=== PATIENT | male | born 1960 | race Caucasian/White ===

== ENCOUNTER 2019-12-21 15:34 | Outpatient (REF) | payer BC, SELFPAY ==
[2019-12-21 17:32] LABS: MANUAL DIFF FLAG NO
[2019-12-21 17:47] LABS: Basophils Percent Auto 0.5 % (0-2); Eosinophils Absolute Auto 0.2 X10*3/uL (0.0-0.4); Eosinophils Percent Auto 1.8 % (0-4); Hemoglobin 13.6 g/dl (14.0-18.0); Imm Gran Abs Auto 0.03 X10*3/uL (0.00-0.03); Imm Gran Pct Auto 0.4 % (0.0-0.4); Lymphocytes Absolute Auto 1.8 X10*3/uL (1.2-4.9); Lymphocytes Percent Auto 22.4 % (20-40); Mean Corpuscular HGB Conc 34.9 g/dl (31.0-36.0); Mean Corpuscular Hemoglobin 30.9 pg (27.0-33.0); Mean Corpuscular Volume 88.6 fL (80-98); Monocytes Absolute Auto 0.6 X10*3/uL (0.1-1.2); Monocytes Percent Auto 7.8 % (2-11); Neutrophils Absolute Auto 5.5 X10*3/uL (2.0-8.3); Neutrophils Percent Auto 67.1 % (45-73); Platelet Count 198 X10*3/uL (160-400); Red Cell Distribution Width 14.3 % (11.0-16.0); White Blood Count 8.2 X10*3/uL (4.8-10.8)
[2019-12-21 18:06] LABS: Alanine Aminotransferase 19 U/L (0-40); Albumin Level 4.6 g/dL (3.5-5.0); Alkaline Phosphatase 74 U/L (39-117); Aspartate Amino Transferase 29 U/L (5-37); Bilirubin Direct 0.2 mg/dL (0.0-0.5); Bilirubin Total 0.5 mg/dL (0.0-1.0); Total Protein 7.2 g/dL (6.5-8.0)
== END 2019-12-21 15:35 | disposition home or self-care (01) ==
LOC: HO.LAB 15:34
PROVIDERS: Visit Provider Psychiatry & Neurology Neurology
DX: G40.802 Other epilepsy, not intractable, without status epilepticus (principal)
CPT/HCPCS: 36415; 80076; 85025

== ENCOUNTER 2020-08-25 14:11 | Outpatient (REF) | payer BC, SELFPAY ==
[2020-08-25 14:47] LABS: Hematocrit 40.2 % (42-52); Hemoglobin 13.8 g/dl (14.0-18.0); Mean Corpuscular HGB Conc 34.3 g/dl (31.0-36.0); Mean Corpuscular Hemoglobin 30.5 pg (27.0-33.0); Mean Corpuscular Volume 88.9 fL (80-98); Mean Platelet Volume 9.1 fL (9.4-12.4); Platelet Count 201 X10*3/uL (160-400); Red Blood Count 4.52 X10*6/uL (4.60-5.80); Red Cell Distribution Width 14.2 % (11.0-16.0); White Blood Count 8.2 X10*3/uL (4.8-10.8)
[2020-08-25 14:51] LABS: Estimated Average Glucose 103 mg/dL; Hemoglobin A1c % 5.2 %
[2020-08-25 15:08] LABS: Alanine Aminotransferase 22 U/L (0-40); Albumin Level 4.5 g/dL (3.5-5.0); Alkaline Phosphatase 69 U/L (39-117); Anion Gap 13 (12-20); Aspartate Amino Transferase 28 U/L (5-37); Bilirubin Total 0.7 mg/dL (0.0-1.0); Blood Urea Nitrogen 10 mg/dL (9-16); Calcium 9.4 mg/dL (8.4-10.2); Carbon Dioxide 26 mmol/L (22-29); Chloride 95 mmol/L (96-108); Cholesterol 214 mg/dL; Estimated Glomerular Filt Rate > 60; Glucose Fasting 101 mg/dL (60-99); HDL Cholesterol 66 mg/dL; LDL Cholesterol Calculated 139 mg/dl; Potassium 4.2 mmol/L (3.3-5.1); Sodium 130 mmol/L (135-145); Total Protein 7.3 g/dL (6.5-8.0); Triglycerides 45 mg/dL
[2020-08-25 15:31] LABS: TSH reflex Free T4 0.43 uIU/mL (0.32-4.0)
== END 2020-08-25 14:12 | disposition home or self-care (01) ==
LOC: HO.LAB 14:11
PROVIDERS: PCP Physician Assistant; Visit Provider Physician Assistant
DX: I10 Essential (primary) hypertension (principal); R19.7 Diarrhea, unspecified; F17.210 Nicotine dependence, cigarettes, uncomplicated; Z12.11 Encounter for screening for malignant neoplasm of colon; Z12.5 Encounter for screening for malignant neoplasm of prostate; Z13.29 Encounter for screening for other suspected endocrine disorder; Z13.1 Encounter for screening for diabetes mellitus; Z13.220 Encounter for screening for lipoid disorders
CPT/HCPCS: 36415; 80053; 80061; 81382; 83036; 84153; 84443; 85027

== ENCOUNTER → 2020-10-18 15:46 | Outpatient (BNVA) | payer BC, SELFPAY | PROVIDERS: Referring Provider Physician Assistant; Visit Provider Nurse Practitioner Family ==

== ENCOUNTER 2021-08-08 08:30 | Outpatient (REF) | payer OTHER, SELFPAY ==
--- NOTE | ~2021-08-08 | CT_ITS ---
EXAMINATION: CT ABDOMEN AND PELVIS WITHOUT CONTRAST CLINICAL INFORMATION: Unilateral inguinal hernia. COMPARISON: None TECHNIQUE: Multidetector volumetric imaging was performed from the superior aspect of the liver through the pubic symphysis. Sagittal and coronal reformatted images were obtained on the technologist's workstation. This CT examination was performed using dose optimization techniques as appropriate, variously including the following: *Automated exposure control *Adjustment of mA and/or kV according to patient size (this includes techniques or standardized protocols for targeted exams where dose is matched to indication/reason for exam; i.e. extremities or head) *Use of iterative reconstruction technique DLP: 315 mGy-cm FINDINGS: LUNG BASES: There is some bibasilar atelectasis or scarring present. No significant acute parenchymal disease is noted. No suspicious lung nodules seen. No pleural or pericardial effusion. LIVER, GALLBLADDER, AND BILIARY TREE: There are a few scattered subcentimeter low-density regions seen within the liver. Within segment 7 of the liver, there is a 1.5 cm cyst present. No definite suspicious solid masses are identified. No intrahepatic bile duct dilatation is seen. The gallbladder is unremarkable with no evidence of radiopaque gallstones, gallbladder wall thickening, or obvious pericholecystic inflammatory changes. PANCREAS: Unremarkable. SPLEEN: Unremarkable. ADRENAL GLANDS: Unremarkable. KIDNEYS AND URETERS: There is a 6 mm nonobstructing calculus seen within the upper pole of the right kidney. Neither kidney demonstrates hydronephrosis. No suspicious solid mass is identified. There is lack of intra-abdominal fat present. No ureteral abnormality is appreciated. BLADDER: Unremarkable. GASTROINTESTINAL TRACT: No dilated loops of large or small bowel are evident. No free air or free fluid is seen. No evidence to suggest colitis. No evidence of acute appendicitis. ABDOMINAL WALL: There is a fat-containing left direct inguinal hernia present with some stranding within the fat consistent with edema. No definite fluid within the sac is identified. LYMPH NODES: No lymphadenopathy is appreciated; however, evaluation is limited due to lack of intra-abdominal fat. VASCULAR: There is mild aortoiliac calcified plaque. No abdominal aortic aneurysm. PELVIC VISCERA: Unremarkable. OSSEOUS STRUCTURES: No suspicious destructive bony lesion is identified. There is degenerative disc disease seen at the L5-S1 level. There is mild scoliosis of the lumbar spine convex right. There is degenerative joint disease seen involving both hips with subchondral cyst formation. There is a nondestructive sclerotic lesion seen about the right iliac bone. CT/CT abdomen pelvis wo con IMPRESSION: Fat-containing left direct inguinal hernia with some edema within the fat. Hepatic cyst. 6 mm nonobstructing right renal calculus. Fleischner guidelines were followed.
[2021-08-08] MEDS: Barium Sulfate Oral (Mocha) 450 ML ORAL.SUSP 900 ML PO (11:28)
== END 2021-08-08 08:31 | disposition home or self-care (01) ==
LOC: HO.CT 08:30
PROVIDERS: PCP Physician Assistant; Visit Provider Physician Assistant
DX: K40.90 Unilateral inguinal hernia, without obstruction or gangrene, not specified as recurrent (principal)
CPT/HCPCS: 74176

== ENCOUNTER → 2022-03-16 14:35 | Outpatient (BNVA) | payer OTHER, SELFPAY | PROVIDERS: PCP Physician Assistant; Visit Provider Nurse Practitioner Family | DX: Z13.89 Encounter for screening for other disorder (principal) ==

== ENCOUNTER 2022-05-15 15:41 | Outpatient (REF) | payer OTHER, SELFPAY ==
[2022-05-15 17:18] LABS: Hematocrit 38.4 % (42.0-52.0); Hemoglobin 13.3 g/dl (14.0-18.0); Mean Corpuscular HGB Conc 34.6 g/dl (31.0-36.0); Mean Corpuscular Hemoglobin 30.6 pg (27.0-33.0); Mean Corpuscular Volume 88.3 fL (80.0-98.0); Mean Platelet Volume 9.4 fL (9.4-12.4); Platelet Count 192 X10*3/uL (160-400); Red Blood Count 4.35 X10*6/uL (4.60-5.80); Red Cell Distribution Width 14.6 % (11.0-16.0); White Blood Count 8.4 X10*3/uL (4.8-10.8)
[2022-05-15 17:52] LABS: Alanine Aminotransferase 15 U/L (0-40); Albumin Level 4.2 g/dL (3.5-5.0); Alkaline Phosphatase 129 U/L (39-117); Anion Gap 15 (12-20); Aspartate Amino Transferase 21 U/L (5-37); Bilirubin Total 0.5 mg/dL (0.0-1.0); Blood Urea Nitrogen 13 mg/dL (9-16); C Reactive Protein 0.19 mg/dL (< or = 0.50); Carbon Dioxide 23 mmol/L (22-29); Chloride 98 mmol/L (96-108); Estimated Glomerular Filt Rate > 60; Glucose Random 84 mg/dL (60-115); Lipase 28 U/L (8-78); Potassium 4.6 mmol/L (3.3-5.1); Sodium 131 mmol/L (135-145); Total Protein 6.7 g/dL (6.5-8.0)
[2022-05-15 18:24] LABS: Vitamin B12 952 pg/mL (200-900)
[2022-05-16 19:29] LABS: Transglutaminase Ab IgG <1.0 U/mL; Transglutaminase IgA <1.0 U/mL
[2022-05-18 19:24] LABS: Vitamin D 25-OH, D2 <4 ng/mL; Vitamin D 25-OH, D3 10 ng/mL; Vitamin D 25-OH, Total 10 ng/mL (30-100)
== END 2022-05-15 15:42 | disposition home or self-care (01) ==
LOC: HO.LAB 15:41
PROVIDERS: PCP Physician Assistant; Visit Provider Nurse Practitioner Family
DX: E55.9 Vitamin D deficiency, unspecified (principal); K21.9 Gastro-esophageal reflux disease without esophagitis; K58.9 Irritable bowel syndrome, unspecified; R19.7 Diarrhea, unspecified; R10.9 Unspecified abdominal pain
CPT/HCPCS: 36415; 80053; 82306; 82607; 82746; 83690; 85027; 86140; 86364

== ENCOUNTER 2023-04-12 15:03 | Outpatient (REF) | payer OTHER, SELFPAY ==
--- NOTE | ~2023-04-12 | XR_ITS ---
EXAMINATION: XR ABDOMEN KUB CLINICAL INDICATION: Abdominal pain COMPARISON: CT of abdomen from July 2021 TECHNIQUE: AP view of the abdomen. FINDINGS: There is nonobstructive bowel gas pattern with 0.6 cm calcification projecting over the expected position of right kidney. There is dextroscoliosis of lumbar spine and mild degenerative changes. XR/XR KUB IMPRESSION: Most likely nephrolithiasis on the right
[2023-04-12 15:43] LABS: Appearance Urine Cloudy; Color Urine Yellow; Glucose Urine UA Negative (Negative); Leukocyte Esterase Urine Trace (Negative); Nitrite Urine Negative (Negative); PH 6.5 (5.0-9.0); UMIC TRIGGER UACC YES; Urine Blood Negative (Negative); Urine Ketones Negative (Negative); Urine Protein Negative (Neg-Trace)
[2023-04-12 15:48] LABS: Bacteria Urine None Seen (None Seen); Hyaline Casts Urine 0-2 /LPF (0-2); RBC Urine 0-2 /HPF (0-2); Squamous Epithelial Cell Urine 0-2 /HPF (0-2); UACC Culture Trigger YES
[2023-04-12 15:51] LABS: Hemoglobin 13.9 g/dl (14.0-18.0); Mean Corpuscular HGB Conc 34.8 g/dl (31.0-36.0); Mean Corpuscular Hemoglobin 31.6 pg (27.0-33.0); Mean Corpuscular Volume 90.9 fL (80.0-98.0); Mean Platelet Volume 8.9 fL (9.4-12.4); Platelet Count 193 X10*3/uL (160-400); Red Cell Distribution Width 14.6 % (11.0-16.0); White Blood Count 7.2 X10*3/uL (4.8-10.8)
[2023-04-12 16:05] LABS: Anion Gap 13 (12-20); Blood Urea Nitrogen 17 mg/dL (9-16); Calcium 9.6 mg/dL (8.4-10.2); Carbon Dioxide 28 mmol/L (22-29); Chloride 100 mmol/L (96-108); Estimated Glomerular Filt Rate > 60; Glucose Random 101 mg/dL (60-115); Potassium 4.4 mmol/L (3.3-5.1); Sodium 137 mmol/L (135-145)
[2023-04-16 18:23] LABS: Levetiracetam Keppra 5.5 mcg/mL (6.0-46.0)
== END 2023-04-12 15:04 | disposition home or self-care (01) ==
LOC: HO.LAB 15:03
PROVIDERS: PCP Physician Assistant; Visit Provider Physician Assistant
DX: R10.9 Unspecified abdominal pain (principal); G40.909 Epilepsy, unspecified, not intractable, without status epilepticus
CPT/HCPCS: 36415; 74018; 80048; 80177; 81001; 85027; 87086

== ENCOUNTER 2023-05-02 15:21 | Outpatient (REF) | payer OTHER, SELFPAY ==
--- NOTE | ~2023-05-02 | US_ITS ---
Examination: Renal ultrasound. Clinical indications: Calculus of kidney. COMPARISON: CT abdomen and pelvis 08/08/2021 and x-ray abdomen 04/12/2023. TECHNIQUE: Routine grayscale imaging of kidneys was performed. FINDINGS: Right kidney: There is normal cortical thickness with mild malrotation right kidney. Right kidney measuring 10.5 x 4.1 x 4.8 cm. There is echogenic stone upper pole measuring 1.0 x 0.6 x 0.7 cm with mild caliectasis. No additional echogenic stones seen. There is mild pelvic fullness. Left kidney was not imaged. Incidental finding of the right hepatic lobe cyst measures 1.7 x 1.2 x [address] it measured 1.5 cm. Echogenic stone upper pole right kidney with mild caliectasis and mild pelvic fullness. The left kidney was not imaged
== END 2023-05-02 15:22 | disposition home or self-care (01) ==
LOC: HO.US 15:21
PROVIDERS: PCP Physician Assistant; Visit Provider Physician Assistant
DX: N20.0 Calculus of kidney (principal)
CPT/HCPCS: 76775

== ENCOUNTER 2023-05-03 10:31 | Outpatient (AMB) | payer OTHER, SELFPAY ==
--- NOTE | 2023-05-03 10:51 | A.OFFVIS_ITS ---
Intake Visit Reasons: kidney stones Intake Note: NEW Patient presents today to established treatment for Kidney Stones: Meds- Tamsulosin (not taking) Allergies to Antibiotic- No Known Allergies Blood Thinner- None Explosive Operator Grenade Required: No Accompanied by: Self / Same As Patient Allergies No Known Allergies Allergy (Verified 05/03/23 10:52) HPI Comments Details: Jose is here for new patient evaluation for right kidney stone. He had imaging KUB and renal US significant for right nephrolithiasis. KUB results 6 mm calcification, renal US measures stone to be approximately 10 mm. Discussed risks to include but not limited to, blood in the urine, bruising to the skin, kidney hematoma, possible need for another procedure if a stone fr agment obstructs the ureter while passing, possible need to repeat procedure if stone is not completely fragmented. Plan: Right ESWL, metabolic w/u. PFSH Medical History Seizures Surgical History H/O colonoscopy H/O esophagogastroduodenoscopy Family History Mother Diabetes HTN (hypertension) Breathing problem Arthritis Social History Housing: House Alcohol intake: former Patient Tobacco Use Status: Former Tobacco user Tobacco use type: Cigarette e-Cigarette/Vaping Use: Never Used Second Hand Smoke Exposure: No Current occupational status: employed Current occupation: [employer] Cognitive needs: No Hearing needs: No Vision needs: Yes Review of Systems Const All systems reviewed & are unremarkable except as noted in HPI and below Reports no additional complaints Eyes Reports no additional complaints ENT Reports no additional complaints Card Reports no additional complaints Resp Reports no additional complaints GI Reports no additional complaints Reports as per HPI Musc Reports no additional complaints Skin/Breast Reports system reviewed and no additional complaints, except as documented Neuro Reports no additional complaints Psych Reports no additional complaints Endo Reports no additional complaints Tyrell/Lymph Reports no additional complaints Aller/Immun Reports no additional complaints Physical Exam Const General: healthy appearing, no acute distress and well developed Orientation/consciousness: patient oriented x3 HEENT Head: Yes normocephalic and Yes atraumatic Eyes Conjunctivae: conjunctivae normal Neck Neck: Yes normal visual inspection Chest Chest palpation & inspection: normal inspection of the chest Resp Effort & Inspection: normal respiratory effort Cardio Rate: regular rate GI Inspection: Yes normal to inspection Skin General skin exam: no rashes or lesions noted Neuro General: patient oriented x3 Extrem General: No pedal edema Psych Appearance: grossly normal Affect: normal affect Results AMB Urinalysis, Automated UA Leukoctes 0 Barry/uL Last Edit by KARLENE Thomas on 05/03/23 11:46 UA Nitrite Negative Last Edit by KARLENE Thomas on 05/03/23 11:46 UA Urobilinogen 3.5 mg/dL Last Edit by KARLENE Thomas on 05/03/23 11:4 6 UA Protein 0 mg/dL Last Edit by KARLENE Thomas on 05/03/23 11:46 UA pH 6.5 Last Edit by KARLENE Thomas on 05/03/23 11:46 UA Blood 0 Daljit/uL Last Edit by KARLENE Thomas on 05/03/23 11:46 UA Specific [place] 1.015 Last Edit by KARLENE Thomas on 05/03/23 11: 46 UA Ketone Negative Last Edit by KARLENE Thomas on 05/03/23 11:46 UA Bilirubin 0 mg/dL Last Edit by KARLENE Thomas on 05/03/23 11:46 UA Glucose 0 mg/dL Last Edit by KARLENE Thomas on 05/03/23 11:46 Results Reviewed Results Reviewed: Laboratory Last Values Urine pH (Auto) 6.5 05/03/23 11:45 Specific [place] (Auto) 1.015 05/03/23 11:45 Urine Protein (Auto) 0 mg/dL 05/03/23 11:45 Glucose (UA)(Auto) 0 mg/dL 05/03/23 11:45 Urine Ketones (Auto) Negative 05/03/23 11:45 Urine Blood (Auto) 0 Daljit/uL 05/03/23 11:45 Urine Nitrite (Auto) Negative 05/03/23 11:45 Urine Bilirubin (Auto) 0 mg/dL 05/03/23 11:45 Urine Urobilinogen (Auto) 3.5 mg/dL 05/03/23 11:45 Leukocyte Esterase (Auto) 0 Barry/uL 05/03/23 11:45 Date of Service: 05/02/23 Examination: Renal ultrasound. Clinical indications: Calculus of kidney. COMPARISON: CT abdomen and pelvis 08/08/2021 and x-ray abdomen 04/12/2023. TECHNIQUE: Routine grayscale imaging of kidneys was performed. FINDINGS: Right kidney: There is normal cortical thickness with mild malrotation right kidney. Right kidney measuring 10.5 x 4.1 x 4.8 cm. There is echogenic stone upper pole measuring 1.0 x 0.6 x 0.7 cm with mild caliectasis. No additional echogenic stones seen. There is mild pelvic fullness. Left kidney was not imaged. Incidental finding of the right hepatic lobe cyst measures 1.7 x 1.2 x [address] it measured 1.5 cm. Echogenic stone upper pole right kidney with mild caliectasis and mild pelvic fullness. Date of Service: 04/12/23 EXAMINATION: XR ABDOMEN KUB CLINICAL INDICATION: Abdominal pain COMPARISON: CT of abdomen from July 2021 TECHNIQUE: AP view of the abdomen. FINDINGS: There is nonobstructive bowel gas pattern with 0.6 cm calcification projecting over the expected position of right kidney. There is dextroscoliosis of lumbar spine and mild degenerative changes. IMPRESSION: Most likely nephrolithiasis on the right Assessment & Plan Assessment & Plan (1) Nephrolithiasis: Code(s): N20.0 - Calculus of kidney Category: Medical Plan Discussed right ESWL 24 hour urine collection Serum calcium and parathyroid hormone level Orders: Orders AMB Urinalysis Automated 05/03/23 Z13.9 - Encounter for screening, unspecified Calcium 05/03/23 N20.0 - Calculus of kidney Parathyroid Hormone Related Pr 05/03/23 N20.0 - Calculus of kidney Patient Instructions: The patient had an opportunity to ask questions regarding treatment plan. All q uestions were answered. Imaging, Laboratory studies were discussed and reviewed in detail. No major barriers to understanding were identified. The patient expressed understanding and agreement with the above treatment plan. The patient is aware they should contact our office by phone for worsening of their current condition or the appearance of new symptoms. Compliance is encouraged with any medications and followup testing that is ordered. It is a privilege to be allowed the opportunity to participate in the urologic care of your patient. If you have any questions or concerns regarding treatment for the above conditions please do not hesitate to contact me. The office telephone contact is [phone]. This note is constructed in part using voice recognition software. While every effort has been made to ensure accuracy hr intern errors may have been included. Yours sincerely, Rama Barrera MD Coding Level of Care Code New Pt Level 4 (07811) Diagnoses Nephrolithiasis N20.0
== END 2023-05-03 11:57 | disposition home or self-care (01) ==
PROVIDERS: PCP Physician Assistant; Visit Provider Urology
DX: N20.0 Calculus of kidney (principal)
CPT/HCPCS: 99204

== ENCOUNTER → 2023-05-03 10:31 | Outpatient (BNVA) | payer OTHER, SELFPAY | PROVIDERS: PCP Physician Assistant; Visit Provider Urology | DX: N20.0 Calculus of kidney (principal) | CPT/HCPCS: 81003 ==

== ENCOUNTER 2023-05-03 12:06 | Outpatient (REF) | payer OTHER, SELFPAY ==
[2023-05-03 13:36] LABS: Calcium 9.8 mg/dL (8.4-10.2)
[2023-05-15 19:08] LABS: Parathyroid Hormone Related Pr 9 pg/mL (11-20)
== END 2023-05-03 12:07 | disposition home or self-care (01) ==
LOC: HO.10HDL 12:06
PROVIDERS: Visit Provider Urology
DX: N20.0 Calculus of kidney (principal)
CPT/HCPCS: 36415; 82310; 83519

== ENCOUNTER 2023-06-12 08:17 | Day surgery (SDC) | payer OTHER, SELFPAY ==
--- NOTE | 2023-06-11 12:08 | P.CONAN_ITS ---
Documented by User: Nirali Sanchez NP 06/11/23 12:10 HPI - Anesthesia Eval Consult details Narrative: 62yo M for ESWL PMFSH Active Problems Active Problems: All Active Problems Flank pain (Acute) Anemia (Acute) Left inguinal hernia (Acute) Varicella exposure (Acute) Elevated fasting glucose (Acute) Borderline high cholesterol (Acute) Annual physical exam (Acute) Nephrolithiasis (Acute) Epilepsy (Acute) Cervical disc disease (Acute) Smoker (Acute) Screening for hypothyroidism (Acute) Screening for diabetes mellitus (DM) (Acute) Encounter for screening colonoscopy (Acute) Diarrhea (Acute) Screening for hypercholesterolemia (Acute) Past Medical History Medical History Seizures Family History Family History Mother Diabetes HTN (hypertension) Breathing problem Arthritis Surgical History Surgical History H/O colonoscopy H/O esophagogastroduodenoscopy Social History Social History Housing: House Alcohol intake: former Patient Tobacco Use Status: Current everyday Tobacco user Tobacco use type: Cigarette e-Cigarette/Vaping Use: Never Used Second Hand Smoke Exposure: No Use of substances other than those prescribed or required for medical reasons: No Are you DNR?: No Advance Directives: No Advance Directives Information Provided: Yes Current occupational status: employed Current occupation: [employer] Cognitive needs: No Hearing needs: No Vision needs: Yes Meds Allergies Allergy/AdvReac Type Severity Reaction Status Date / Time No Known Allergies Allergy Verified 05/03/23 10:52 Home Medications ?Medication ?Instructions ?Recorded ?Confirmed ?Last Taken ?Type gabapentin 300 mg capsule 300 mg PO TID 05/05/20 06/12/23 Unknown History oxcarbazepine 300 mg tablet 300 mg PO BID 05/05/20 06/12/23 06/12/23 03:00 History perampanel 6 mg tablet 6 mg PO BEDTIME 05/05/20 06/12/23 Unknown History clonazepam 1 mg tablet 1 mg PO BEDTIME 08/25/20 06/12/23 Unknown History Exam Pertinent Lab Results Pertinent Lab Results: Laboratory Tests 04/12/23 15:17 WBC 7.2 Hgb 13.9 L Hct 40.0 L Plt Count 193 Sodium 137 Potassium 4.4 Chloride 100 Carbon Dioxide 28 BUN 17 H Creatinine 0.89 Assessment and Plan Assessment Anesthesia Assessment: Chart Reviewed Documented by User: Jhonny Benitez MD 06/12/23 12:04 [facility] Past Medical History Medical History Seizures Family History Family History Mother Diabetes HTN (hypertension) Breathing problem Arthritis Family history of problems with anesthesia: No Surgical History Surgical History H/O colonoscopy H/O esophagogastroduodenoscopy History of Problems with Anesthesia: No Social History Social History Housing: House Alcohol intake: former Patient Tobacco Use Status: Current everyday Tobacco user Tobacco use type: Cigarette e-Cigarette/Vaping Use: Never Used Second Hand Smoke Exposure: No Use of substances other than those prescribed or required for medical reasons: No Are you DNR?: No Advance Directives: No Advance Directives Information Provided: Yes Current occupational status: employed Current occupation: [employer] Cognitive needs: No Hearing needs: No Vision needs: Yes Meds Allergies Allergy/AdvReac Type Severity Reaction Status Date / Time No Known Allergies Allergy Verified 05/03/23 10:52 Home Medications ?Medication ?Instructions ?Recorded ?Confirmed ?Last Taken ?Type gabapentin 300 mg capsule 300 mg PO TID 05/05/20 06/12/23 Unknown History oxcarbazepine 300 mg tablet 300 mg PO BID 05/05/20 06/12/23 06/12/23 03:00 History perampanel 6 mg tablet 6 mg PO BEDTIME 05/05/20 06/12/23 Unknown History clonazepam 1 mg tablet 1 mg PO BEDTIME 08/25/20 06/12/23 Unknown History Exam Airway Mallampati Class: I TM Dist: >3cm Neck ROM: Full Loose/Missing/Broken Teeth: No Heart: ok Lungs: ok Assessment and Plan Assessment Anesthesia Assessment: Anesthesia Plan Discussed Final Anesthetic Review Family History of Problems with Anesthesia: No History of Problems with Anesthesia: No NPO: Yes ASA Class: III Final Preanesthetic Review: No Changes in Pt Med Stat, Meds/Allgs Chart Reviewed, Consent Obtained/Reviewed and Anes Risks/Benef Reviewed Patient Risk: Low Procedure Risk: Low Anesthetic Plan Anesthetic Plan: GA and Agree w/ Assess. and Plan Disposition: Standard PACU
--- NOTE | ~2023-06-12 | XR_ITS ---
EXAMINATION: XR ABDOMEN KUB CLINICAL INDICATION: Right kidney stone COMPARISON: 04/12/2023 TECHNIQUE: AP view of the abdomen. FINDINGS: There is normal bowel gas distribution but there is stable calcification over the expected location of right kidney, measured 0.6 cm most likely stone There is dextroscoliosis of lumbar spine. XR/XR KUB IMPRESSION: Nephrolithiasis on the right and dextroscoliosis.
[2023-06-12 09:11] VITALS: BMI 21.0
[2023-06-12 09:33] VITALS: BP 146/80; PULSE 52; RESP 16; TEMP 36.7; O2SAT 98
[2023-06-12] MEDS: Lactated Ringers 1,000 ML 100 ML IVCONT (10:00)
--- NOTE | 2023-06-12 11:24 | MHC.SHP ---
Pre-Procedural Eval Section A - 24 Hr Update-Section A only Date of Service: 06/12/23 The patient is an INPATIENT: No The patient has been examined within 24 hours of the surgical procedure. The History & Physical has been completed within 30 days and I have reviewed it.: Yes Section B - Complete if H&P > 30 days Chief Complaint: Calculus of kidney, right Allergies: Allergies Allergy/AdvReac Type Severity Reaction Status Date / Time No Known Allergies Allergy Verified 05/03/23 10:52 Plan Diagnosis/Plan: Unchanged I have reviewed the history and physical and performed a pertinent physical examination on my patient. No changes have occurred unless specified. Right ESWL. Discussed risks to include but not limited to, blood in the urine, bruising to the skin, kidney hematoma, possible need for another procedure if a stone fragment obstructs the ureter while passing, possible need to repeat procedure if stone is not completely fragmented. Time Spent With Patient Time: Total time managing care of this patient today ____ minutes.
--- NOTE | 2023-06-12 12:34 | W.PM.OPN ---
Operative Note Operative Note Date of Service: 06/12/23 Narrative: PreOperative Diagnosis:? ? Right Renal stone Post Operative Diagnosis:? Right? Renal stone Procedure:? Right? ESWL Surgeon:?Dr Rama Barrera Anesthesia:? General Indications for procedure: The patient understands there is a risk of bruising or hematoma to the kidney, infection, and stone migration following the procedure and subsequent intervention may be required.? - Imaging 6 x 6 mm stone right kidney Procedure: After informed consent was verified the patient was brought to the operating room and placed in a supine position.? Anesthesia was performed per protocol. Safety pause time-out was performed. Imaging was displayed in the room and laterality confirmed. ESWL was performed.?The stone was visualized on both fluoroscopy and ultrasound.? Shockwave lithotripsy was performed, with a maximum rate of 120 hertz. After the first 300 shocks a pause for 3 minutes was completed.? A total of 2500 shocks to a maximum of power of 18 with a maximum rate of 120 hertz.? Some fragmentation of the stone was appreciated. The patient tolerated the procedure well and was transferred to the recovery area upon completion. Complications: None
[2023-06-12 12:45] VITALS: BP 123/68; PULSE 48; RESP 16; TEMP 36.2; O2SAT 98
[2023-06-12 12:50] VITALS: BP 152/80; PULSE 46; RESP 16; O2SAT 99
[2023-06-12 12:55] VITALS: BP 160/76; PULSE 48; RESP 16; O2SAT 99
[2023-06-12 13:00] VITALS: BP 159/80; PULSE 44; RESP 16; O2SAT 98
[2023-06-12 13:15] VITALS: BP 165/85; PULSE 43; RESP 16; TEMP 36.1; O2SAT 100
== END 2023-06-12 13:50 | disposition home or self-care (01) ==
PROVIDERS: PCP Physician Assistant; Visit Provider Urology
PROC: (CPT 50590; principal; 2023-06-12 09:50)
DX: N20.0 Calculus of kidney (principal); R56.9 Unspecified convulsions; Z79.899 Other long term (current) drug therapy; Z87.891 Personal history of nicotine dependence
CPT/HCPCS: 50590; 74018; J0131; J0690; J1940; J2704; J3010

== ENCOUNTER → 2023-06-12 08:17 | Outpatient (BNV) | payer OTHER, SELFPAY | PROVIDERS: PCP Physician Assistant; Visit Provider Urology | DX: N20.0 Calculus of kidney (principal) | CPT/HCPCS: 50590 ==

== ENCOUNTER 2023-07-25 15:21 | Outpatient (AMB) | payer OTHER, SELFPAY ==
--- NOTE | 2023-07-25 15:44 | A.OFFVIS_ITS ---
Intake Visit Reasons: ESWL- follow up/US Intake Note: Patient presents for Post Op ESWL and US Results: Meds- Tamsulosin (not taking) Allergies to Antibiotic- No Known Allergies Blood Thinner- None Meteorologist Liaison Required: No Accompanied by: Self / Same As Patient Allergies No Known Allergies Allergy (Verified 05/03/23 10:52) HPI Comments Details: 07/25/23--David is status post right ESWL on 06/12/2023. Did well states no significant pain after the procedure States he did not see any stone fragments in the urine postprocedure. Plan 24 hour urine, renal ultrasound and KUB x-ray, follow-up telehealth in 8 weeks 05/03/23--Jose is here for new patient evaluation for right kidney stone. He had imaging KUB and renal US significant for right nephrolithiasis. KUB results 6 mm calcification, renal US measures stone to be approximately 10 mm. Discussed risks to include but not limited to, blood in the urine, bruising to the skin, kidney hematoma, possible need for another procedure if a stone fragment obstructs the ureter while passing, possible need to repeat procedure if stone is not completely fragmented. Plan: Right ESWL, metabolic w/u. [facility] Medical History Seizures Surgical History H/O esophagogastroduodenoscopy H/O colonoscopy Family History Mother Diabetes HTN (hypertension) Breathing problem Arthritis Social History Housing: House Alcohol intake: former Patient Tobacco Use Status: Current everyday Tobacco user Tobacco use type: Cigarette e-Cigarette/Vaping Use: Never Used Second Hand Smoke Exposure: No Current occupational status: employed Current occupation: [employer] Cognitive needs: No Hearing needs: No Vision needs: Yes Review of Systems Const All systems reviewed & are unremarkable except as noted in HPI and below Reports no additional complaints Eyes Reports no additional complaints ENT Reports no additional complaints Card Reports no additional complaints Resp Reports no additional complaints GI Reports no additional complaints Reports as per HPI Musc Reports no additional complaints Skin/Breast Reports system reviewed and no additional complaints, except as documented Neuro Reports no additional complaints Psych Reports no additional complaints Endo Reports no additional complaints Tyrell/Lymph Reports no additional complaints Aller/Immun Reports no additional complaints Assessment & Plan Assessment & Plan (1) Nephrolithiasis: Code(s): N20.0 - Calculus of kidney Category: Medical Plan 24 hour urine, renal ultrasound and KUB x-ray, follow-up telehealth in 8 weeks Orders: Orders US renal BI 07/25/23 N20.0 - Calculus of kidney XR KUB 07/25/23 N20.0 - Calculus of kidney Patient Instructions: The patient had an opportunity to ask questions regarding treatment plan. The patient expressed understanding and agreement with the above treatment plan. The patient is aware they should contact our office by phone for worsening of their current condition or the appearance of new symptoms. Compliance is encouraged with any medications and followup testing that is ordered. It is a privilege to be allowed the opportunity to participate in the urologic care of your patient. If you have any questions or concerns regarding treatment for the above conditions please do not hesitate to contact me. The office telephone contact is [phone]. This note is constructed in part using voice recognition software. While every effort has been made to ensure accuracy refrigeration service technician errors may have been included. Yours sincerely, Rama Barrera MD Coding Level of Care Code Global (55425) Diagnoses Nephrolithiasis N20.0
== END 2023-07-25 16:12 | disposition home or self-care (01) ==
PROVIDERS: PCP Physician Assistant; Visit Provider Urology
DX: N20.0 Calculus of kidney (principal)
CPT/HCPCS: 99024

== ENCOUNTER → 2023-07-25 15:21 | Outpatient (BNVA) | payer OTHER, SELFPAY | PROVIDERS: PCP Physician Assistant; Visit Provider Urology ==

== ENCOUNTER 2023-09-16 15:17 | Outpatient (REF) | payer OTHER, SELFPAY ==
--- NOTE | ~2023-09-16 | XR_ITS ---
EXAMINATION: XR ABDOMEN KUB CLINICAL INDICATION: Calculus of kidney, evaluate following stone removal COMPARISON: 06/12/2023 TECHNIQUE: AP view of the abdomen. FINDINGS: 3 mm calcification overlying the right renal shadow appears slightly smaller than on previous study. Nonobstructive bowel pattern. Dextroscoliosis again seen. XR/XR KUB IMPRESSION: 3 mm calcification overlying the right renal shadow. Please refer to same day ultrasound identifying 9 mm right mid pole nonobstructing renal calculus. Electronically signed by: Malgorzata Yao MD 10/15/2023 09:30 AM EDT
--- NOTE | ~2023-09-16 | US_ITS ---
EXAMINATION: US RETROPERITONEAL LIMITED (RENAL ONLY) CLINICAL INFORMATION: Calculus of kidney. COMPARISON: X-ray KUB 09/16/2023 and 06/12/2023. Renal ultrasound 05/02/2023. CT abdomen and pelvis 08/08/2021. TECHNIQUE: Real-time imaging of the kidneys. Limited visualization due to bowel gas. FINDINGS: RIGHT KIDNEY: 11.1 x 3.4 x 4.9 cm (SAG x AP x TRV). 0.9 cm [id number] pole calculus. No hydronephrosis. Slight anterior rotation of the kidney. Limited visualization. 0.7 cm midpole cyst and 0.9 cm upper pole cyst with benign features. There is no specific indication for additional imaging. LEFT KIDNEY: 12.5 x 6.6 x 5.5 cm (SAG x AP x TRV). No hydronephrosis. No renal calculi. Renal cortical thickness is normal. Limited visualization. 1.5 cm midpole cyst with benign features. There is no indication for follow-up imaging. US/US renal BI IMPRESSION: 0.9 cm right renal calculus. No hydronephrosis.
== END 2023-09-16 15:18 | disposition home or self-care (01) ==
LOC: HO.US 15:17
PROVIDERS: PCP Physician Assistant; Visit Provider Urology
DX: N20.0 Calculus of kidney (principal)
CPT/HCPCS: 74018; 76775

== ENCOUNTER 2023-09-19 15:35 | Outpatient (AMB) | payer OTHER, SELFPAY ==
--- NOTE | 2023-09-19 15:38 | MHC.OFFVIS ---
Intake Visit Reasons: 8w/US/KUB/[facility](?) Intake Note: Patient is present for Ultrasound follow up Urology Med:None Antibiotic Allergy:None Blood Thinner: None Catalog Library Assistant Required: No Accompanied by: Self / Same As Patient Allergies No Known Allergies Allergy (Verified 09/19/23 15:42) HPI Comments Details: 09/19/23-- FU for right nephrolithiasis, underwent right ESWL 06/12/23, resulting in no significant change. Reviewed renal US 09/16/23- right renal stone- stable, no hydronephrosis, no left renal calculi. Plan 24 hr urine. Review of chart: 07/25/23--David is status post right ESWL on 06/12/2023. Did well states no significant pain after the procedure States he did not see any stone fragments in the urine postprocedure. Plan 24 hour urine, renal ultrasound and KUB x-ray, follow-up telehealth in 8 weeks 05/03/23--Jose is here for new patient evaluation for right kidney stone. He had imaging KUB and renal US significant for right nephrolithiasis. KUB results 6 mm calcification, renal US measures stone to be approximately 10 mm. Discussed risks to include but not limited to, blood in the urine, bruising to the skin, kidney hematoma, possible need for another procedure if a stone fragment obstructs the ureter while passing, possible need to repeat procedure if stone is not completely fragmented. Plan: Right ESWL, metabolic w/u. PFSH Medical History Seizures Surgical History H/O esophagogastroduodenoscopy H/O colonoscopy Family History Mother Diabetes HTN (hypertension) Breathing problem Arthritis Social History Housing: House Alcohol intake: former Patient Tobacco Use Status: Current everyday Tobacco user Tobacco use type: Cigarette e-Cigarette/Vaping Use: Never Used Second Hand Smoke Exposure: No Current occupational status: employed Current occupation: [employer] Cognitive needs: No Hearing needs: No Vision needs: Yes Review of Systems Const All systems reviewed & are unremarkable except as noted in HPI and below Reports no additional complaints Eyes Reports no additional complaints ENT Reports no additional complaints Card Reports no additional complaints Resp Reports no additional complaints GI Reports no additional complaints Reports as per HPI Musc Reports no additional complaints Skin/Breast Reports system reviewed and no additional complaints, except as documented Neuro Reports no additional complaints Psych Reports no additional complaints Endo Reports no additional complaints Tyrell/Lymph Reports no additional complaints Aller/Immun Reports no additional complaints Results Reviewed Results Reviewed: Date of Service: 09/16/23 EXAMINATION: US RETROPERITONEAL LIMITED (RENAL ONLY) CLINICAL INFORMATION: Calculus of kidney. COMPARISON: X-ray KUB 09/16/2023 and 06/12/2023. Renal ultrasound 05/02/2023. CT abdomen and pelvis 08/08/2021. TECHNIQUE: Real-time imaging of the kidneys. Limited visualization due to bowel gas. FINDINGS: RIGHT KIDNEY: 11.1 x 3.4 x 4.9 cm (SAG x AP x TRV). 0.9 cm [id number] pole calculus. No hydronephrosis. Slight anterior rotation of the kidney. Limited visualization. 0.7 cm midpole cyst and 0.9 cm upper pole cyst with benign features. There is no specific indication for additional imaging. LEFT KIDNEY: 12.5 x 6.6 x 5.5 cm (SAG x AP x TRV). No hydronephrosis. No renal calculi. Renal cortical thickness is normal. Limited visualization. 1.5 cm midpole cyst with benign features. There is no indication for follow-up imaging. IMPRESSION: 0.9 cm right renal calculus. No hydronephrosis. Date of Service: 05/02/23 Examination: Renal ultrasound. Clinical indications: Calculus of kidney. COMPARISON: CT abdomen and pelvis 08/08/2021 and x-ray abdomen 04/12/2023. TECHNIQUE: Routine grayscale imaging of kidneys was performed. FINDINGS: Right kidney: There is normal cortical thickness with mild malrotation right kidney. Right kidney measuring 10.5 x 4.1 x 4.8 cm. There is echogenic stone upper pole measuring 1.0 x 0.6 x 0.7 cm with mild caliectasis. No additional echogenic stones seen. There is mild pelvic fullness. Left kidney was not imaged. Incidental finding of the right hepatic lobe cyst measures 1.7 x 1.2 x [address] it measured 1.5 cm. Echogenic stone upper pole right kidney with mild caliectasis and mild pelvic fullness. Date of Service: 04/12/23 EXAMINATION: XR ABDOMEN KUB CLINICAL INDICATION: Abdominal pain COMPARISON: CT of abdomen from July 2021 TECHNIQUE: AP view of the abdomen. FINDINGS: There is nonobstructive bowel gas pattern with 0.6 cm calcification projecting over the expected position of right kidney. There is dextroscoliosis of lumbar spine and mild degenerative changes. IMPRESSION: Most likely nephrolithiasis on the right Assessment & Plan Assessment & Plan (1) Nephrolithiasis: Code(s): N20.0 - Calculus of kidney Category: Medical Plan 24 hour urine Patient Instructions: The patient had an opportunity to ask questions regarding treatment plan. The patient expressed understanding and agreement with the above treatment plan. The patient is aware they should contact our office by phone for worsening of their current condition or the appearance of new symptoms. Compliance is encouraged with any medications and followup testing that is ordered. It is a privilege to be allowed the opportunity to participate in the urologic care of your patient. If you have any questions or concerns regarding treatment for the above conditions please do not hesitate to contact me. The office telephone contact is [phone]. This note is constructed in part using voice recognition software. While every effort has been made to ensure accuracy affirmative action officer errors may have been included. Yours sincerely, Rama Barrera MD Coding Level of Care Code Est Pt Level 3 (80455) Diagnoses Nephrolithiasis N20.0
== END 2023-09-19 16:04 | disposition home or self-care (01) ==
PROVIDERS: PCP Physician Assistant; Visit Provider Urology
DX: N20.0 Calculus of kidney (principal)
CPT/HCPCS: 99213

== ENCOUNTER → 2023-09-19 15:35 | Outpatient (BNVA) | payer OTHER, SELFPAY | PROVIDERS: PCP Physician Assistant; Visit Provider Urology ==